=== PATIENT | male | born 1955 | race Caucasian/White ===

== ENCOUNTER 2019-03-23 07:38 | Emergency (ER) | payer OTHER ==
[~2019-03-23] VITALS: Ht 182.9 cm; Wt 93.0 kg
[~2019-03-23 07:38] MED LIST: ALBU2.5V5 INH; AMLO5 PO; Aspir 8181 MG PO; CARDURA4 MG PO; CYCL10 PO; DOCU100 PO; DOXA4 PO; DULO60; DULO60 PO; Flonase 0.05% N16 GM; LISI20 PO; NICO21TP TOP; OMEPRAZOLE MAGN20 MG; Q-Tussin100 MG/5 M PO; Symbicort 16010.2 GM INH; ZESTORETIC 20-121 EA PO
[2019-03-23 08:25] LABS: BASOPHILS ABSOLUTE AUTO 0.11 K/mm3 (0.00-0.23); BASOPHILS PERCENT AUTO 1 % (0-2); EOSINOPHILS ABSOLUTE AUTO 0.45 K/mm3 (0.00-0.68); EOSINOPHILS PERCENT AUTO 3 % (0-6); Hematocrit 43.4 % (37.0-53.0); Hemoglobin 14.5 g/dL (13.5-17.5); IMMATURE GRAN ABSOLUTE AUTO 0.06 K/mm3 (0.00-0.10); IMMATURE GRAN PERCENT AUTO 0 % (0-1); LYMPHOCYTES ABSOLUTE AUTO 2.88 K/mm3 (0.84-5.20); LYMPHOCYTES PERCENT AUTO 17 % (21-46); MONOCYTES ABSOLUTE AUTO 1.53 K/mm3 (0.16-1.47); MONOCYTES PERCENT AUTO 9 % (4-13); Mean Corpuscular HGB 30.7 pg (26.0-34.0); Mean Corpuscular HGB Conc 33.4 g/dL (31.5-36.5); Mean Corpuscular Volume 92 fL (80-100); NEUTROPHILS ABSOLUTE AUTO 11.72 K/mm3 (1.96-9.15); NEUTROPHILS PERCENT AUTO 70 % (41-73); Platelet Count 311 K/mm3 (150-400); RDW Coefficient Variation 12.6 % (11.7-14.2); RDW Standard Deviation 42.2 fL (35.1-46.3); Red Blood Cell Count 4.72 M/mm3 (4.30-5.90); White Blood Cell Count 16.75 K/mm3 (4.00-11.30)
[2019-03-23 08:41] LABS: Alanine Aminotransfer (ALT/SGP 21 U/L (12-78); Albumin, Blood 3.4 g/dL (3.4-5.0); Alk Phos 84 U/L (50-136); Anion Gap 6 mmol/L (6-16); Aspartate Aminotrans (AST/SGOT 16 U/L (12-37); Bilirubin, Total 0.3 mg/dL (0.1-1.0); Blood Urea Nitrogen 9 mg/dL (8-24); Bun/Creatinine Ratio 8.3 (12.0-20.0); CO2, Blood 26 mmol/L (21-32); Calcium, Blood 8.3 mg/dL (8.5-10.1); Chloride, Blood 111 mmol/L (98-108); Creatinine, Blood 1.09 mg/dL (0.60-1.20); Globulin, Blood 3.4 g/dL (2.2-4.0); Glomerular Filtration Rate >60 (60-); Glucose, Blood 117 mg/dL (70-99); Potassium, Blood 3.9 mmol/L (3.5-5.5); Sodium, Blood 143 mmol/L (136-145); Total Protein, Blood 6.8 g/dL (6.4-8.2); Troponin I <0.015 ng/mL (0.000-0.040)
[2019-03-24] MEDS ORDERED: GABA300 PO ×2 (17:02)
[2019-03-24] MEDS ORDERED: DICL75ER PO (17:02)
[2019-03-24] MEDS ORDERED: TIOT18 INH (17:03)
== END 2019-03-23 10:44 | disposition home or self-care (01) ==
LOC: ER 07:38
PROVIDERS: Emergency Medicine
DX: J93.9 Pneumothorax, unspecified (principal); I10 Essential (primary) hypertension; J44.9 Chronic obstructive pulmonary disease, unspecified; E66.9 Obesity, unspecified; Z68.27 Body mass index [BMI] 27.0-27.9, adult; Z79.899 Other long term (current) drug therapy; Z79.82 Long term (current) use of aspirin
CPT/HCPCS: 32551; 71045; 71046; 80053; 84484; 85025; 93005; 93010; 99284-25

== ENCOUNTER 2019-03-24 12:50 | Inpatient (IN) | payer OTHER ==
[~2019-03-24] VITALS: Ht 182.9 cm; Wt 79.8 kg
[2019-03-24 13:09] LABS: BASOPHILS ABSOLUTE AUTO 0.09 K/mm3 (0.00-0.23); BASOPHILS PERCENT AUTO 1 % (0-2); EOSINOPHILS ABSOLUTE AUTO 0.21 K/mm3 (0.00-0.68); EOSINOPHILS PERCENT AUTO 1 % (0-6); Hematocrit 46.6 % (37.0-53.0); Hemoglobin 15.2 g/dL (13.5-17.5); IMMATURE GRAN ABSOLUTE AUTO 0.08 K/mm3 (0.00-0.10); IMMATURE GRAN PERCENT AUTO 0 % (0-1); LYMPHOCYTES ABSOLUTE AUTO 3.32 K/mm3 (0.84-5.20); LYMPHOCYTES PERCENT AUTO 17 % (21-46); MONOCYTES ABSOLUTE AUTO 2.17 K/mm3 (0.16-1.47); MONOCYTES PERCENT AUTO 11 % (4-13); Mean Corpuscular HGB 30.6 pg (26.0-34.0); Mean Corpuscular HGB Conc 32.6 g/dL (31.5-36.5); Mean Corpuscular Volume 94 fL (80-100); NEUTROPHILS ABSOLUTE AUTO 13.36 K/mm3 (1.96-9.15); NEUTROPHILS PERCENT AUTO 69 % (41-73); Platelet Count 302 K/mm3 (150-400); RDW Coefficient Variation 12.8 % (11.7-14.2); RDW Standard Deviation 44.1 fL (35.1-46.3); Red Blood Cell Count 4.96 M/mm3 (4.30-5.90); White Blood Cell Count 19.23 K/mm3 (4.00-11.30)
[2019-03-24 13:45] LABS: Alanine Aminotransfer (ALT/SGP 31 U/L (12-78); Albumin, Blood 3.5 g/dL (3.4-5.0); Albumin/Globulin Ratio 0.8 (0.8-1.8); Alk Phos 85 U/L (50-136); Anion Gap 10 mmol/L (6-16); Aspartate Aminotrans (AST/SGOT 26 U/L (12-37); Bilirubin, Total 0.6 mg/dL (0.1-1.0); Blood Urea Nitrogen 11 mg/dL (8-24); Bun/Creatinine Ratio 10.6 (12.0-20.0); CO2, Blood 22 mmol/L (21-32); Calcium, Blood 8.8 mg/dL (8.5-10.1); Chloride, Blood 108 mmol/L (98-108); Creatinine, Blood 1.04 mg/dL (0.60-1.20); Globulin, Blood 4.2 g/dL (2.2-4.0); Glomerular Filtration Rate >60 (60-); Glucose, Blood 150 mg/dL (70-99); Potassium, Blood 3.9 mmol/L (3.5-5.5); Sodium, Blood 140 mmol/L (136-145); Total Protein, Blood 7.7 g/dL (6.4-8.2); Troponin I <0.015 ng/mL (0.000-0.040)
[2019-03-24] MEDS ORDERED: GABA300 PO ×2 (17:02)
[2019-03-24] MEDS ORDERED: DICL75ER PO (17:02)
[2019-03-24] MEDS ORDERED: TIOT18 INH (17:03)
--- NOTE | 2019-03-24 18:35 | NUR ---
ADMIT NEW ER ADMIT WITH PNEUMOTHORAX AND CHEST TUBE IN PLACE. VSS. ON 2L VIA NC. PT DENIES SOB AT THIS TIME. LUNGS COARSE ON THE LEFT SIDE, CLEAR/DIMINISHED ON THE RIGHT. CHEST TUBE L LATERAL INTACT. CREPITUS NOTED TO UPPER L CHEST WALL AND AROUND CHEST TUBE INSERTION SITE AND L BACK. MEDICATED WITH 25MCG IV FENTANYL FOR PAIN. URINAL AT BEDSIDE. CALL LIGHT WITHIN REACH. WILL REPORT TO NOC TAN.
--- NOTE | 2019-03-25 07:30 | NUR ---
pt awake stated his breathing is much better ct to sx and 20 water seal min drainage pt still has creptius to l upper chest wall pt stated it is better moving more air to left base of the lung
--- NOTE | 2019-03-25 09:00 | NUR ---
DR SARMIENTO BY TO SEE PT REQ A PNEMONIA SHOT STATED A FLU SHOT
--- NOTE | 2019-03-25 11:31 | NUR ---
dr mcdermott by to see pt pt uspet has to stay poss surg if pnuemo does not seal
--- NOTE | 2019-03-25 12:00 | NUR ---
pt eating lunch offered pain meds pt declined at this time
--- NOTE | 2019-03-25 17:21 | NUR ---
PT EATING DINNER
--- NOTE | 2019-03-26 06:32 | NUR ---
SUMMARY PT WITH NO C/O SOB OR CP THROUGHOUT THIS SHIFT. URINE INCREASING IN VOLUME AND EDIPHONE OPERATOR IN COLOR NIGHT PROGRESSED.PT SLEPT WITHOUT COMPLAINT. CT CONT INTACT TO PLEURAVAC AT 20 CM SX. PT WITH MINIMAL DISCOMFORT.REPORTS FEELING MUCH BETTER THAN ADMIT.PT ANXIOUS TO BE DISCHARGED AT HOME WITH TERMINAL CA. IS CURRENTLY UNDER DAUGHTERS CARE AND PT IS USUALLY CAREGIVER.
--- NOTE | 2019-03-26 07:48 | NUR ---
ASSESSMENT: PT IS SLEEPING. RESP E/U. NO S/S DISTRESS. 2L [address] TO WALL SUCTION. CALL LIGHT IN REACH. DR HART IN TO ROUND BUT PT IS ASLEEP. WILL DO FULL ASSESSMENT WHEN PT AWAKE AND ALERT.
--- NOTE | 2019-03-26 09:39 | NUR ---
ANXIETY: HOSPITALIST IN TO SEE PATIENT WHO IS VISIBLY ANXIOUS AND TEARFUL. PT STATES THAT HE IS LEAVING TODAY NO MATTER WHAT. PT STATES HE IS THE CAREGIVER FOR WHO IS TERMINALLY ILL AND HE WOULD RATHER BE AT HOME WITH HER THAN WORRY ABOUT HIMSELF. DAUGHTER OF PT IS CURRENTLY CARING FOR . REASSURED PT OF CARE PLAN AND PT ECUCATED ON FINDINGS OF CXR AND USE OF CT. PT OFFERED MEDICATION FOR ANXIETY WHICH HE DECLINED. PT AGREEABLE AFTER THIS RN SPOKE TO SURGEON, TO STAY TILL TOMORROW TO MONITOR PROGRESS WITH CT TREATMENT.
--- NOTE | 2019-03-26 16:20 | NUR ---
ROUNDING: PALLIATIVE CARE IN TO SEE PATIENT. DR THOMAS IN TO ADJUST CT CXR SHOWS WORSENING PNEUMO. ALSO DISCUSSED PLAN OF CARE MOVING FORWARD. PT VERBALIZED UNDERSTANDING.
--- NOTE | 2019-03-26 16:39 | NUR ---
Received call from Latesha Botello. Discussed case and Rosmery reports Pt may benefit from Palliative Care Visit. Pt resting in bed upon arrival. Friends of Pt at bedside. Pt verbalizes consent to have discussion with friends present. Pt reports a tolerable 3/10 pain in chest tube site and back. Pt denies SOB but is moderately anxious. Listened as Pt discusses recommendations regarding his care including the possibility of being transported to [place] for procedure. Pt expresses consideration of not going due to his being at home with metastatic cancer. Listened as Pt reports being his 's primary caregiver. Listened as Pt expresses concerns regarding suffering his is experiencing. Discussed hospice as an option for his . Pt reports his is still wanting to receive some palliative radiation treatment but will consider speaking with her about hospice once she is ready to stop treatments. Educated on hospice philosophy with V/U made by Pt. Pt still expressing reservations about going to [facility]. He states his daughter is at home caring for his but daughter tends to be a little high strung and panics easily. Friends leave for home and Dr Palma arrives. Dr Palma discusses options including the possibility of still needing to go to [facility]. Dr Palma reports the approximation length of stay at [facility] after procedure. Dr Palma will F/U with Pt tomorrow. Discussed with Pt the importance of considering procedure now while his is still ok vs waiting until is at end stage. Discussed the importance of reducing stress for both him and his . Pt appears receptive to conversation and reports he will consider going to [facility] to have procedure. Palliative Care will remain available.
--- NOTE | 2019-03-26 18:50 | NUR ---
PT HAS BEEN STABLE THIS SHIFT. PT HAS DENIED ANY SOB. REMAINS ON 2L O2. PT CXR SHOWED WORSENING PNEUMOTHORAX, DR THOMAS IN TO ADJUST TUBE. PT HAD TOTAL OF 15CC SEROSANGUINOUS DRAINAGE IN CHEST TUBE. CONTINUES DRY HARSH COUGH. NICOTINE PATCH IN PLACE.PALLIATIVE CARE AND ROUTEMAN BOTH IN TO SEE PATIENT AND DISCUSS NEEDS THIS AFTERNOON. PT PAIN MANAGED WITH PRN MEDS. PT TOLERATING DIET AND VOIDING WELL WITH URINAL.
[2019-03-27 04:48] LABS: BASOPHILS ABSOLUTE AUTO 0.03 K/mm3 (0.00-0.23); BASOPHILS PERCENT AUTO 0 % (0-2); EOSINOPHILS ABSOLUTE AUTO 0.33 K/mm3 (0.00-0.68); EOSINOPHILS PERCENT AUTO 3 % (0-6); Hemoglobin 12.9 g/dL (13.5-17.5); IMMATURE GRAN ABSOLUTE AUTO 0.02 K/mm3 (0.00-0.10); IMMATURE GRAN PERCENT AUTO 0 % (0-1); LYMPHOCYTES ABSOLUTE AUTO 3.11 K/mm3 (0.84-5.20); LYMPHOCYTES PERCENT AUTO 30 % (21-46); MONOCYTES ABSOLUTE AUTO 1.38 K/mm3 (0.16-1.47); MONOCYTES PERCENT AUTO 13 % (4-13); Mean Corpuscular HGB 30.6 pg (26.0-34.0); Mean Corpuscular HGB Conc 33.1 g/dL (31.5-36.5); Mean Corpuscular Volume 93 fL (80-100); Mean Platelet Volume 9.3 fL (9.1-12.4); NEUTROPHILS ABSOLUTE AUTO 5.49 K/mm3 (1.96-9.15); NEUTROPHILS PERCENT AUTO 53 % (41-73); Platelet Count 303 K/mm3 (150-400); RDW Coefficient Variation 12.2 % (11.7-14.2); RDW Standard Deviation 41.8 fL (35.1-46.3); Red Blood Cell Count 4.21 M/mm3 (4.30-5.90); White Blood Cell Count 10.36 K/mm3 (4.00-11.30)
[2019-03-27 05:16] LABS: Anion Gap 3 mmol/L (6-16); Blood Urea Nitrogen 12 mg/dL (8-24); Bun/Creatinine Ratio 12.4 (12.0-20.0); CO2, Blood 31 mmol/L (21-32); Calcium, Blood 8.3 mg/dL (8.5-10.1); Chloride, Blood 109 mmol/L (98-108); Creatinine, Blood 0.97 mg/dL (0.60-1.20); Glomerular Filtration Rate >60 (60-); Glucose, Blood 86 mg/dL (70-99); Potassium, Blood 4.1 mmol/L (3.5-5.5); Sodium, Blood 143 mmol/L (136-145)
--- NOTE | 2019-03-27 07:28 | NUR ---
SUMMARY CT PATENT OF 15 ML SERO-SANG TONIGHT. PT IN NO DISTRESS. DENIES SOB. HOPING FOR DECREASE IN PNEUMO HE WANTS DISCHARGE TO GO HOME TO TERMINALLY ILL .
--- NOTE | 2019-03-27 07:46 | NUR ---
pt sleeping wakes to verbal stimuli pt stated his breathing feels fine no sob at rest ls dim with cough pt has a wheeze ct to sx and water seal pt still has some crepitus to l upper chest wall less then before productive cough yellow
--- NOTE | 2019-03-27 11:31 | NUR ---
dr martin by to see pt to call a surgeon re partial lobectomy inpt vs outpt
--- NOTE | 2019-03-27 14:55 | NUR ---
awaiting bed assignment for quirino aceves at bedside
--- NOTE | 2019-03-27 17:45 | NUR ---
amb transport to [facility] report called to senia on surgical to go to room 7203 pt on portable sx with ct no acute changes in cond
== END 2019-03-27 17:42 | disposition short-term general hospital (02) | DRG 201 ==
LOC: ER 12:50 → SURS 12:51
PROVIDERS: Emergency Medicine; ADMIT Internal Medicine
DX: J93.83 Other pneumothorax (principal); Z79.82 Long term (current) use of aspirin; N40.0 Benign prostatic hyperplasia without lower urinary tract symptoms; I10 Essential (primary) hypertension; F17.210 Nicotine dependence, cigarettes, uncomplicated; J44.9 Chronic obstructive pulmonary disease, unspecified; F32.9 Major depressive disorder, single episode, unspecified; J98.2 Interstitial emphysema
CPT/HCPCS: 32551; 36415; 71045; 80048; 80053; 84484; 85025; 90670; 90686; 93005; 93010; 94640; 94760; 96372; 96374-59; 96375; 96376; 99285-25; A9270-GY; G0008; G0378; J1650; J1885; J3010

== ENCOUNTER 2023-01-12 11:40 | Observation (INO) | payer OTHER ==
[~2023-01-12] VITALS: Ht 177.8 cm; Wt 75.3 kg
[~2023-01-12 11:40] MED LIST changes: +DICL75ER PO; +GABA300 PO; +TIOT18 INH
[2023-01-12] MEDS ORDERED: ATORVASTATIN CA20 MG PO (11:59)
[2023-01-12 12:05] LABS: BASOPHILS ABSOLUTE AUTO 0.11 K/mm3 (0.00-0.23); BASOPHILS PERCENT AUTO 0 % (0-2); EOSINOPHILS ABSOLUTE AUTO 0.11 K/mm3 (0.00-0.68); EOSINOPHILS PERCENT AUTO 0 % (0-6); Hematocrit 44.5 % (37.0-53.0); Hemoglobin 14.9 g/dL (13.5-17.5); IMMATURE GRAN ABSOLUTE AUTO 0.12 K/mm3 (0.00-0.10); IMMATURE GRAN PERCENT AUTO 0 % (0-1); LYMPHOCYTES ABSOLUTE AUTO 2.71 K/mm3 (0.84-5.20); LYMPHOCYTES PERCENT AUTO 10 % (21-46); MONOCYTES ABSOLUTE AUTO 3.14 K/mm3 (0.16-1.47); MONOCYTES PERCENT AUTO 11 % (4-13); Mean Corpuscular HGB 31.2 pg (26.0-34.0); Mean Corpuscular HGB Conc 33.5 g/dL (31.5-36.5); Mean Corpuscular Volume 93 fL (80-100); Mean Platelet Volume 9.1 fL (9.1-12.4); NEUTROPHILS ABSOLUTE AUTO 21.88 K/mm3 (1.96-9.15); NEUTROPHILS PERCENT AUTO 78 % (41-73); Platelet Count 338 K/mm3 (150-400); RDW Coefficient Variation 12.7 % (11.7-14.2); RDW Standard Deviation 43.4 fL (35.1-46.3); Red Blood Cell Count 4.77 M/mm3 (4.30-5.90); White Blood Cell Count 28.07 K/mm3 (4.00-11.30)
[2023-01-12 12:09] LABS: Base Excess Venous 5.2 mmol/L; Bicarbonate Venous 25.9 mmol/L (24.0-30.0); PCO2 Venous 71.2 mmHg (38-42)
[2023-01-12 12:10] LABS: pH Blood Venous 7.26 (7.34-7.37)
[2023-01-12 12:21] LABS: Albumin, Blood 3.3 g/dL (3.4-5.0); Albumin/Globulin Ratio 0.9 (0.8-1.8); Bilirubin, Total 0.6 mg/dL (0.1-1.0); Bun/Creatinine Ratio 8.8 (12.0-20.0); Creatinine, Blood 0.91 mg/dL (0.60-1.20); Globulin, Blood 3.7 g/dL (2.2-4.0); Potassium, Blood 4.1 mmol/L (3.5-5.5)
[2023-01-12 12:48] LABS: Influenza A, PCR NEGATIVE (NEGATIVE); Influenza B, PCR NEGATIVE (NEGATIVE); Resp Syncytial Virus, PCR NEGATIVE (NEGATIVE); SARS-Cov-2 (COVID-19) PCR, MMC NEGATIVE (NEGATIVE)
[2023-01-12 15:20] VITALS: BP 124/83
[2023-01-12 16:00] VITALS: BP 149/71
[2023-01-12 16:15] VITALS: BP 136/76
--- NOTE | 2023-01-12 17:36 | NUR ---
PT ARRIVED IN THE UNIT FROM THE ER VIA HUSEYIN PT ABLE TO STAND AND TRANSFER, REPORT RECEIVED FROM DORIS MADDOX. PT IS HERE FOR RESPI FAILURE WAS ON BIPAP IN THE ER PER REPORT BIPAP NOW ON STNADBY, CURRENTLY ON 3L OF O2 WHICH IS HIS BASELINE AT HOME, NO RESPIRATORY DISTRESS SOME SOB WITH EXERTION SATS KEPT ABOVE 93%, HRR SR ON TELE 90'S, SBP 130-140'S, AFEBRILE. ALERT AND ORIENTED X4 AMBULATORY, HAS SOME EPISODES OF ANXIETY. LUNGS DIMINISHED ALL T/O. PT IS A DAILY SMOKER DECIDED TO QUIT FROM NOW ON NICOTINE PATCH IN PLACE ON LEFT UPPER BACK. PT DENIES ANY PAIN/DISCOMFORT. LACTIC ACID NOW DOWN TO 1.2 NS RUNNING AT 100MLS/HR X 1 BAG. PT EATING DINNER NOW, NO ISSUES. PT USES URINAL TO VOID, CONTINENT OF BOTH BOWEL AND BLADDER. NO OTHER REPORTED ISSUES PT CALLS APPROPRIATELY CALL LIGHTS IN REACH WILL REPORT TO ONCOMING SHIFT
[2023-01-12 20:00] VITALS: BP 121/69
[2023-01-13 00:01] VITALS: BP 145/76
[2023-01-13 04:01] LABS: BASOPHILS ABSOLUTE AUTO 0.04 K/mm3 (0.00-0.23); BASOPHILS PERCENT AUTO 0 % (0-2); EOSINOPHILS PERCENT AUTO 0 % (0-6); Hematocrit 40.5 % (37.0-53.0); Hemoglobin 13.7 g/dL (13.5-17.5); IMMATURE GRAN ABSOLUTE AUTO 0.11 K/mm3 (0.00-0.10); IMMATURE GRAN PERCENT AUTO 1 % (0-1); LYMPHOCYTES ABSOLUTE AUTO 1.73 K/mm3 (0.84-5.20); LYMPHOCYTES PERCENT AUTO 8 % (21-46); MONOCYTES ABSOLUTE AUTO 0.72 K/mm3 (0.16-1.47); MONOCYTES PERCENT AUTO 4 % (4-13); Mean Corpuscular HGB 31.2 pg (26.0-34.0); Mean Corpuscular HGB Conc 33.8 g/dL (31.5-36.5); Mean Corpuscular Volume 92 fL (80-100); Mean Platelet Volume 9.2 fL (9.1-12.4); NEUTROPHILS ABSOLUTE AUTO 18.24 K/mm3 (1.96-9.15); NEUTROPHILS PERCENT AUTO 88 % (41-73); Platelet Count 282 K/mm3 (150-400); RDW Coefficient Variation 12.7 % (11.7-14.2); RDW Standard Deviation 42.8 fL (35.1-46.3); Red Blood Cell Count 4.39 M/mm3 (4.30-5.90); White Blood Cell Count 20.84 K/mm3 (4.00-11.30)
[2023-01-13 04:09] VITALS: BP 133/76
[2023-01-13 04:20] LABS: Calcium, Blood 8.7 mg/dL (8.5-10.1); Creatinine, Blood 0.78 mg/dL (0.60-1.20); Potassium, Blood 4.2 mmol/L (3.5-5.5)
--- NOTE | 2023-01-13 05:20 | NUR ---
SHIFT SUMMARY PT REMAINS A&O X4, PLEASANT AND COOPERATIVE WITH CARE. VSS THROUGHOUT SHIFT. PT REMAINS ON 2 L O2 VIA NC, SPO2 96 - 100%. PT REPORTS HIS BREATHING "IS IMPROVING". PT DENIES DIFFICULTY BREATHING, THIS RN NOTES SOB WITH EXERTION AND AT TIMES DURING CONVERSATION. ALSO PT OCCASSIONALLY SITS UPRIGHT IN BED TO HELP BREATH BETTER, BUT PT DENIES SOB OR TROUBLE BREATHING. PT DID NOT NEED BIPAP THROUGHOUT THE NIGHT, HOWEVER BIPAP STILL ON STANDBY AT BEDSIDE. PT USING URINAL INDEPENDENTLY AT BEDSIDE. NS INFUSION X1 BAG COMPLETE. NO ACUTE CHANGES DURING SHIFT. PT RESTED WELL THROUGH THE NIGHT. WILL UPDATE ONCOMING RN
--- NOTE | 2023-01-13 06:36 | NUR ---
UPDATE THIS RN IN ROOM TO ROUND AND COMPLETE AM MEDS, PT SITTING UP IN BED AND IS TEARFUL. THIS RN ASKED PT IF HE IS OKAY, PT STATES "I AM ALRIGHT JUST THINKING". PT THEN ABLE TO SHARE HIS EMOTIONS AND THOUGHTS WITH THIS RN. PT STATES HE KNOWS "HE DOESN'T HAVE MUCH TIME" AND IS STARTING TO THINK ABOUT EVERYTHING. PT SHARES ABOUT HIS AND HOW MUCH HE MISSES HER FROM HER RECENT PASSING. THIS RN PROVIDED LISTENING, SUPPORT AND WAS ABLE TO TALK WITH PT FOR AWHILE. PT EMOTIONAL BUT CALM.
[2023-01-13 07:24] VITALS: BP 150/70
[2023-01-13] MEDS ORDERED: DOXY100 PO (09:39)
[2023-01-13] MEDS ORDERED: TAMS.4ER PO (09:40)
[2023-01-13] MEDS ORDERED: DELTASONE20 MG PO (09:40)
--- NOTE | 2023-01-13 13:33 | NUR ---
PT DISCHARGE TO HOME WITH DISHCHARGE ORDERS. PT ON 2L OF O2 NASAL CANNULA SATTING ABOVE 93%. VITALS HAS BEEN STABLE PT DENIES ANY KIND OF PAIN OR DISCOMFORT. PRESCRIPTION SENT TO [facility]. DAUGHTER CAME IN TO FACILITIES AND GROUNDS DIRECTOR PT BUT STARTED GETTING FEELING SICK WITH VERTIGO AND STARTED PUKING LOOKING PALE AND CLAMMY WAS ASSISTED TO THE EMERGENCY ROOM SHE WASNT SAFE TO DRIVE PT HOME. PT REQUESTED TO GET DISCHARGED AND SIT AND WAIT FOR HER IN THE ER, AND CAN JUST CALL A CAB LATER IF HE NEEDS TO. ALL BELONGINGS SENT WITH THE PT. ASSISTED VIA WHEELCHAIR.
== END 2023-01-13 12:59 | disposition home or self-care (01) ==
LOC: ER 11:40 → PCU 11:41 → ER 15:07 → PCU 01-13 12:59
PROVIDERS: Emergency Medicine; Family Medicine; ADMIT Hospitalist
DX: J18.9 Pneumonia, unspecified organism (principal); J43.9 Emphysema, unspecified; J96.02 Acute respiratory failure with hypercapnia; J96.01 Acute respiratory failure with hypoxia; J93.9 Pneumothorax, unspecified; M54.9 Dorsalgia, unspecified; N40.0 Benign prostatic hyperplasia without lower urinary tract symptoms; I45.81 Long QT syndrome; R00.0 Tachycardia, unspecified; I10 Essential (primary) hypertension; F17.210 Nicotine dependence, cigarettes, uncomplicated; Z66 Do not resuscitate; Z79.82 Long term (current) use of aspirin; Z79.899 Other long term (current) drug therapy; Z20.822 Contact with and (suspected) exposure to COVID-19
CPT/HCPCS: 0241U; 36415; 71045; 80048; 80053; 82803; 83605; 83880; 84145; 84484; 85025; 87040; 93005; 93010; 94640; 94644; 94660; 94664; 94762; 96361; 96365; 96367; 96372; 96375; 96376; 99285-25; A9270; G0378; J0456; J0696; J1650; J2930; J7030; J7050; J7512

== ENCOUNTER 2023-03-18 01:44 | Inpatient (IN) | payer OTHER ==
[~2023-03-18] VITALS: Ht 182.9 cm; Wt 76.9 kg
[2023-03-18] VITALS (7 sets, daily range): BP systolic 125–168; BP diastolic 69–96
[~2023-03-18 01:44] MED LIST changes: +ATORVASTATIN CA20 MG PO; +DELTASONE20 MG PO; +DOXY100 PO; +TAMS.4ER PO
[2023-03-18 02:27] LABS: BASOPHILS ABSOLUTE AUTO 0.07 K/mm3 (0.00-0.23); BASOPHILS PERCENT AUTO 0 % (0-2); EOSINOPHILS ABSOLUTE AUTO 0.27 K/mm3 (0.00-0.68); EOSINOPHILS PERCENT AUTO 1 % (0-6); IMMATURE GRAN ABSOLUTE AUTO 0.12 K/mm3 (0.00-0.10); IMMATURE GRAN PERCENT AUTO 1 % (0-1); LYMPHOCYTES ABSOLUTE AUTO 2.72 K/mm3 (0.84-5.20); LYMPHOCYTES PERCENT AUTO 12 % (21-46); MONOCYTES ABSOLUTE AUTO 1.98 K/mm3 (0.16-1.47); MONOCYTES PERCENT AUTO 9 % (4-13); Mean Corpuscular HGB Conc 32.5 g/dL (31.5-36.5); Mean Corpuscular Volume 95 fL (80-100); Mean Platelet Volume 9.8 fL (9.1-12.4); NEUTROPHILS ABSOLUTE AUTO 17.25 K/mm3 (1.96-9.15); NEUTROPHILS PERCENT AUTO 77 % (41-73); Platelet Count 282 K/mm3 (150-400); RDW Coefficient Variation 13.2 % (11.7-14.2); RDW Standard Deviation 45.6 fL (35.1-46.3); White Blood Cell Count 22.41 K/mm3 (4.00-11.30)
[2023-03-18 02:29] LABS: Albumin, Blood 3.2 g/dL (3.4-5.0); Albumin/Globulin Ratio 0.7 (0.8-1.8); Bilirubin, Total 0.3 mg/dL (0.1-1.0); Bun/Creatinine Ratio 15.7 (12.0-20.0); Creatinine, Blood 0.76 mg/dL (0.60-1.20); Globulin, Blood 4.3 g/dL (2.2-4.0); Potassium, Blood 3.7 mmol/L (3.5-5.5); Total Protein, Blood 7.5 g/dL (6.4-8.2)
[2023-03-18 02:54] LABS: Influenza A, PCR NEGATIVE (NEGATIVE); Influenza B, PCR NEGATIVE (NEGATIVE); Resp Syncytial Virus, PCR NEGATIVE (NEGATIVE); SARS-Cov-2 (COVID-19) PCR, MMC NEGATIVE (NEGATIVE)
[2023-03-18] MEDS ORDERED: GABA300 PO ×3 (04:55→04:56)
--- NOTE | 2023-03-18 07:22 | NUR ---
SHIFT SUMMARY/ARRIVAL TO PCU NOTE RECEIVED REPORT FROM SQUEEGEE FINISHER JIMMY MORALES. PT SHORTLY ARRIVED TO PCU ~0430 THIS AM. TRANSFERRED FROM [facility] TO PCU BED VIA SLIDE SHEET. A/Ox4 AND COOPERATIVE WITH CARE. ANSWERS QUESTIONS APPROPRIATELY AND ABLE TO MAKE HIS NEEDS KNOWN. ARRIVED IN SR-ST 90-100'S WITH NO REPORTS OF CP OR PRESSURE. SBP SLIGHTLY ELEVATED RANGING 140-160'S. RESPIRATORY, ARRIVED FROM THE ER NOT WEARING OXYGEN. PT REPORTS HIS BASELINE AT HOME IS 3L VIA NC. MAINTAINS SPO2 >90% ON 3L VIA NC. DENIES SOB OR DYSPNEA. TACYPNEA NOTED WITH EXERTION HOWEVER. GI/, ABLE TO VOID INTO URINAL WITH MINIMAL STAFF ASSIST. BS PRESETN IN ALL QUADRANTS WITH NO ABD TENDERNESS, REPORTED. NO WOUNDS OR EXORIATION NOTED. ASSESSED PT FOR RISKS OF ANY IGNITION SOURCES WELL BEHAVIORS FOR INCREASED RISKS OF FIRE DANGER. PT EDUCATED ON COMMON SOURCES OF IGNITION WELL NEED TO KEEP A SAFE ENVIRONMENT. PT VOICED UNDERSTANDING. NO NEW ORDERS AT THIS TIME, WILL REPORT TO ONCOMING RN. MIRIAM AMBROSE OF THIS NOTE
--- NOTE | 2023-03-18 08:15 | NUR ---
AM ASSESSMENT: Pt resting in bed on 3L per NC (pt baseline). States that he feels good and that he is breathing well. HR reg, BT positive, Pulses palp. Denies pain. Pt is diaphoretic and pale, states that he got really hot last night and that he started to sweat. Pt states that he has not had a BM since Saturday and that he has to take stools softeners and laxatives. Will notify physician. Pt denies other needs at this time. Will continue to monitor. Call light in reach.
--- NOTE | 2023-03-18 10:45 | NUR ---
update: Pt got up to BSC with one person SBA. Became very SOB. BIpap placed. Pt was able to void and have large BM. When back to bed Pt required required breathing tx and Bipap. Became very anxious d/t work of breathing and air hunger. Biox remained 95-100% the whole time. After 15-20min pt started to calm down and work of breathing improved. Pt remaining on Bipap 14/8 35% fio2 at this time. Call light in reach. Denies needs.
--- NOTE | 2023-03-18 15:12 | NUR ---
Transfer of care: Reoprt given to TAN Mena. Stable at this time. Pt resting comfortably with 3l per NC. Pt denies needs. Call light in reach.
--- NOTE | 2023-03-18 17:10 | NUR ---
Shift Summary Assumed care of patient at approx 1500. No acute changes noted. VSS. Will continue to monitor.
[2023-03-19 03:52] VITALS: BP 141/68
[2023-03-19 04:24] LABS: BASOPHILS ABSOLUTE AUTO 0.02 K/mm3 (0.00-0.23); BASOPHILS PERCENT AUTO 0 % (0-2); EOSINOPHILS ABSOLUTE AUTO 0.01 K/mm3 (0.00-0.68); EOSINOPHILS PERCENT AUTO 0 % (0-6); Hematocrit 36.6 % (37.0-53.0); Hemoglobin 12.2 g/dL (13.5-17.5); IMMATURE GRAN ABSOLUTE AUTO 0.14 K/mm3 (0.00-0.10); IMMATURE GRAN PERCENT AUTO 1 % (0-1); LYMPHOCYTES ABSOLUTE AUTO 1.68 K/mm3 (0.84-5.20); LYMPHOCYTES PERCENT AUTO 8 % (21-46); MONOCYTES ABSOLUTE AUTO 0.89 K/mm3 (0.16-1.47); MONOCYTES PERCENT AUTO 4 % (4-13); Mean Corpuscular HGB 30.9 pg (26.0-34.0); Mean Corpuscular HGB Conc 33.3 g/dL (31.5-36.5); Mean Corpuscular Volume 93 fL (80-100); Mean Platelet Volume 9.8 fL (9.1-12.4); NEUTROPHILS ABSOLUTE AUTO 17.77 K/mm3 (1.96-9.15); NEUTROPHILS PERCENT AUTO 87 % (41-73); Platelet Count 300 K/mm3 (150-400); RDW Coefficient Variation 13.2 % (11.7-14.2); Red Blood Cell Count 3.95 M/mm3 (4.30-5.90); White Blood Cell Count 20.51 K/mm3 (4.00-11.30)
[2023-03-19 05:10] LABS: Albumin, Blood 2.8 g/dL (3.4-5.0); Albumin/Globulin Ratio 0.7 (0.8-1.8); Bilirubin, Total 0.2 mg/dL (0.1-1.0); Bun/Creatinine Ratio 16.7 (12.0-20.0); Creatinine, Blood 0.66 mg/dL (0.60-1.20); Potassium, Blood 3.6 mmol/L (3.5-5.5); Total Protein, Blood 6.8 g/dL (6.4-8.2)
--- NOTE | 2023-03-19 05:39 | NUR ---
VERIFY REP SUMMARY PT ALERT, ORIENTED, PLEASANT THROUGHOUT SHIFT. MAINTAINED O2 SATS >95% ON BASELINE 3LO2 WITHOUT ISSUE. DID NOT HAVE ANY FURTHER EPISODES OF ANXIETY OR INCREASED WOB REQUIRING BIPAP PLACEMENT. PT HAS BEEN IN SINUS RHYTHM WITH OCCASIONAL PVCS, AND DID HAVE ONE EPISODE OF TACHYCARDIA IN 150S WHILE SLEEPING WHICH RESOLVED WITHOUT INTERVENTION LASTING ABOUT 1 MINUTE. DENIES PAIN OR SOB THIS SHIFT. NO OTHER ACUTE CHANGES.
[2023-03-19 08:25] VITALS: BP 143/82
[2023-03-19] MEDS ORDERED: VISBIOME 112.51 EACH PO (13:17)
[2023-03-19] MEDS ORDERED: Azithromycin500 MG PO (13:22)
[2023-03-19] MEDS ORDERED: CEFD300 PO (13:23)
[2023-03-19 13:50] VITALS: BP 118/84
--- NOTE | 2023-03-19 16:28 | NUR ---
LATE DISCHARGE NOTE PT DISCHARGED ABOUT ~1400. DISCHARGE SHEET SIGNED AND ALL DISCHARGE PAPERS GIVEN TO PT BEFORE DISCHARGE. PT LEFT FACILITY WITH DAUGHTER WHO HELPS TO TAKE CARE OF HIM. MELISSASUMMERALYCEStephenie AGREED TO RE-ENROLL PT IN THEIR CARE AND WILL BEGIN SATURDAY. PT HAS ALL EQUIPMENT AND MEDICATION NECESSARY AT HOME TO GET HIM THROUGH TOMORROW BEFORE SATURDAY. VITALS WERE TAKEN RIGHT BEFORE DISCHARGE AND CHARTED. PT WAS ENCOURAGED TO CONTACT PRIMARY CARE PROVIDER TO SCHEDULE FOLLOW UP NEEDED AND CONTACT US WITH ANY QUESTIONS/CONCERNS REGARDING STAY OR DISCHARGE. PT VOICED UNDERSTANDING.
== END 2023-03-19 14:19 | disposition hospice, home (50) | DRG 871 ==
LOC: ER 01:44 → PCU 03:01
PROVIDERS: Family Medicine; Student in an Organized Health Care Education/Training Program; ADMIT Internal Medicine
PROC: 5A09357 Assistance with Respiratory Ventilation, Less than 24 Consecutive Hours, Continuous Positive Airway Pressure (ICD-10-PCS; principal; 2023-03-18)
PROC: 3E03329 Introduction of Other Anti-infective into Peripheral Vein, Percutaneous Approach (ICD-10-PCS; 2023-03-18)
PROC: 3E02340 Introduction of Influenza Vaccine into Muscle, Percutaneous Approach (ICD-10-PCS; 2023-03-18)
DX: A41.9 Sepsis, unspecified organism (principal); J18.9 Pneumonia, unspecified organism; J96.21 Acute and chronic respiratory failure with hypoxia; J96.22 Acute and chronic respiratory failure with hypercapnia; J44.1 Chronic obstructive pulmonary disease with (acute) exacerbation; J44.0 Chronic obstructive pulmonary disease with (acute) lower respiratory infection; R65.20 Severe sepsis without septic shock; N40.0 Benign prostatic hyperplasia without lower urinary tract symptoms; Z23 Encounter for immunization; G89.29 Other chronic pain; M54.9 Dorsalgia, unspecified; I10 Essential (primary) hypertension; F17.210 Nicotine dependence, cigarettes, uncomplicated; F41.9 Anxiety disorder, unspecified; I95.9 Hypotension, unspecified; E66.9 Obesity, unspecified; Z90.49 Acquired absence of other specified parts of digestive tract; Z68.21 Body mass index [BMI] 21.0-21.9, adult
CPT/HCPCS: 0241U; 36415; 71045; 80053; 82947; 83605; 85025; 87040; 93005; 93010; 94640; 94644; 94660; 94664; 94762; 96365; 96368; 97162; 97530; 99285-25; A9270; J0456; J0696; J1650; J2930; J7030; J7050; Q2036